=== PATIENT | female | born 1990 | race Hispanic/Latino ===

== ENCOUNTER 2018-09-10 11:03 | Outpatient (CLI) | payer MEDICAID ==
--- NOTE | 2018-09-10 12:02 | Ultrasound Report ---
LEFT BREAST ULTRASOUND: 09/10/18 11:03:00 CLINICAL: 28-year-old with a left breast lump felt by her doctor at 3 o'clock. She was breast-feeding at the time and has discontinued breast-feeding. The patient does not feel a lump. FINDINGS: Ultrasound the left breast was performed from 2 o'clock to 4 o'clock and demonstrated normal fibroglandular structures. No mass, cyst or shadowing. IMPRESSION: Negative targeted left breast ultrasound. BI-RADS 1 - - Negative RECOMMENDATION: Clinical followup and routine mammographic screening based on ACS guidelines.
== END 2018-09-10 11:04 | disposition home or self-care (01) ==
LOC: US 11:03
PROVIDERS: ATTEND Obstetrics & Gynecology
DX: N63.20 Unspecified lump in the left breast, unspecified quadrant (principal)

== ENCOUNTER 2021-07-14 20:48 | Outpatient (CLI) | payer MEDICAID ==
[2021-07-14] MEDS ORDERED: LACTATED RINGERS 1,000 ML ONE (21:15)
--- NOTE | 2021-07-14 22:17 | Ultrasound Report ---
Obstetrical ultrasound limited INDICATION: well-being FINDINGS: heart rate is 148 bpm. The fetus is in the cephalic position. Signer Name: Joe Howe MD Signed: 07/14/2021 10:12 PM Workstation Name: [id number]
[2021-07-14 23:01] LABS: Bacteria,Urine 1+ /HPF (Negative); Bilirubin,Urine NEG (Negative); Blood,Urine NEG (Negative); Color,Urine Yellow (Yellow); Mucus,Urine FEW /HPF; Protein,Urine <15 mg/dL mg/dL (Negative); Urobilinogen,Urine < 2.0 mg/dL (<2.0)
[2021-07-14 23:14] VITALS: BP 138/88
--- NOTE | 2021-07-15 01:53 | Event Note ---
Date: 07/14/21 Patient presented complaining of contractions and rectal pressure. She's a patient of Dr. Lex Coronado. States pain started while [place] a couple of hours prior to arrival, she denies having sex since conception, ROM, bleeding, constipation or urinary symptoms. States she has not felt any FM since yesterday. Initially stated she was 25 weeks by a recent US at [facility]. However she gave an CHARLES of 11/17/21. On reviewing [facility] she was noted to have a 9 1/7 week US on 04/26/21 that placed her CHARLES 11/28/21. She Has jaelyn evaluated by [facility] for "calcifications on the baby's heart and a cyst in the baby's brain" and she's HIV +, diagnosed 12/2020. Currently she's on Bitarvy and also followed by ID. FHT's were not able to be palpated therefore US ordered that revealed +FHT's and cephalic. SVE by Damien =0/0/-4. IVF fluids given and UA performed. UA negative.
== END 2021-07-14 23:30 | disposition home or self-care (01) ==
LOC: TRG 20:48 → APU 20:50 → TRG 23:30
PROVIDERS: ATTEND Obstetrics & Gynecology
DX: O47.02 False labor before 37 completed weeks of gestation, second trimester (principal); Z3A.20 20 weeks gestation of pregnancy
CPT/HCPCS: 76815; 81001

== ENCOUNTER 2021-07-24 17:38 | Outpatient (CLI) | payer MEDICAID ==
[2021-07-24] MEDS ORDERED: LACTATED RINGERS 500 ML IV ONE (18:19)
[2021-07-24 18:23] VITALS: BP 125/82
--- NOTE | 2021-07-24 19:05 | Event Note ---
Date: 07/24/21 Pt presents to triage with c/o losing her mucous plug and felt "gush" of vaginal fluid. Pt denies feeling any pain. Reports spotting seen when wiped this am but since resolved. Per RN, ROM plus already sent. Pt informed testing may come back with a false positive d/t vaginal spotting today. Orders given for ultrasound for total VALERIO. Speculum exam negative for pooling, cervix visualized closed and thick, and white clumpy discharge noted. Pt reports recent tx for yeast infection x1 day. Pt denies vaginal itching and odor. Pt reports +HIV status and denies sexual encounters since conception of this . FU this week with MyOB d/w pt and advised for vaginitis ssx. Plan to discharge home if VALERIO WNL. FHT's + and no contractions seen on toco. POC d/w pt. Pt verbalizes understanding and agrees to POC.
[2021-07-24 19:06] LABS: Bilirubin,Urine NEG (Negative); Blood,Urine NEG (Negative); Calcium Oxalate Crystals,Urine 1+; Color,Urine Yellow (Yellow); Mucus,Urine 2+ /HPF; Protein,Urine <15 mg/dL mg/dL (Negative)
--- NOTE | 2021-07-24 19:24 | Ultrasound Report ---
US OB limited INDICATION / CLINICAL INFORMATION: R/O PPROM. COMPARISON: 07/14/2021. FINDINGS: Single viable intrauterine is noted in cephalic presentation. Heart rate is 152. Subjective ly amniotic fluid is within normal limits. IMPRESSION: 1. Single viable intrauterine . Amniotic fluid is within normal limits subjectively. Signer Name: Alfa Lilly MD Signed: 07/24/2021 7:19 PM Workstation Name: [id number]
== END 2021-07-24 19:07 | disposition home or self-care (01) ==
LOC: TRG 17:38 → APU 17:40 → TRG 19:07
PROVIDERS: ATTEND Obstetrics & Gynecology
DX: O36.8120 Decreased fetal movements, second trimester, not applicable or unspecified (principal); Z3A.21 21 weeks gestation of pregnancy
CPT/HCPCS: 36415; 76815; 81001; 84112

== ENCOUNTER 2021-10-04 10:54 | Outpatient (CLI) | payer MEDICAID ==
[2021-10-04 14:20] LABS: Color,Urine Yellow (Yellow)
[2021-10-04 14:21] LABS: Bilirubin,Urine Negative (Negative)
[2021-10-04 14:22] LABS: PH,Urine 7.5 (5.0-7.0)
[2021-10-04 14:23] LABS: Blood,Urine Trace (Negative); Protein,Urine <30 mg dL mg/dL (Negative)
[2021-10-04] MEDS ORDERED: LACTATED RINGERS 500 ML IV ONE ×2 (14:30→16:00)
[2021-10-04] MEDS ORDERED: LACTATED RINGERS 1,000 ML IV ONE (14:30)
[2021-10-04 14:54] LABS: Amorphous Crystals,Urine 2+; Calcium Oxalate Crystals,Urine 2+; Mucus,Urine FEW /HPF; Renal Epithelial Cells,Urine 4 /LPF
[2021-10-04] MEDS: TERBUTALINE 1 MG/1 ML INJ SUB-Q SCH ×2 (15:17→16:53)
[2021-10-04 16:55] VITALS: BP 127/82
== END 2021-10-04 18:30 | disposition home or self-care (01) ==
LOC: TRG 10:54 → APU 10:55 → TRG 18:30
PROVIDERS: ATTEND Obstetrics & Gynecology
DX: O62.9 Abnormality of forces of labor, unspecified (principal); Z3A.32 32 weeks gestation of pregnancy
CPT/HCPCS: 59025; 81001; 87086; 96360; 96361; 96372; J3105; J7120

== ENCOUNTER 2021-10-18 12:25 | Outpatient (CLI) | payer MEDICAID ==
[2021-10-18] MEDS ORDERED: ACETAMINOPHEN 325 MG TAB PO NR (14:00)
[2021-10-18 14:16] LABS: Bilirubin,Urine NEG (Negative); Blood,Urine SM (Negative); Color,Urine Yellow (Yellow)
[2021-10-18 14:35] LABS: Mucus,Urine 2+ /HPF
[2021-10-18 15:07] VITALS: BP 93/54
== END 2021-10-18 15:22 | disposition home or self-care (01) ==
LOC: TRG 12:25 → APU 12:27 → TRG 15:22
PROVIDERS: ATTEND Obstetrics & Gynecology
DX: O42.90 Premature rupture of membranes, unspecified as to length of time between rupture and onset of labor, unspecified weeks of gestation (principal); O26.892 Other specified pregnancy related conditions, second trimester; M54.50 Low back pain, unspecified; Z3A.34 34 weeks gestation of pregnancy
CPT/HCPCS: 81001; 87086

== ENCOUNTER 2021-11-01 21:21 | Outpatient (CLI) | payer MEDICAID ==
[2021-11-01 21:49] VITALS: BP 123/82
[2021-11-01] MEDS ORDERED: LACTATED RINGERS 1,000 ML IV ONE (22:14)
== END 2021-11-01 23:00 | disposition home or self-care (01) ==
LOC: TRG 21:21 → APU 21:23 → TRG 23:00
PROVIDERS: ATTEND Obstetrics & Gynecology
DX: O62.9 Abnormality of forces of labor, unspecified (principal); Z3A.36 36 weeks gestation of pregnancy
CPT/HCPCS: 36415; 84112; Q0177

== ENCOUNTER 2021-11-23 23:15 | Outpatient (CLI) | payer MEDICAID ==
[2021-11-23 23:22] VITALS: BP 134/84
[2021-11-24 01:03] LABS: Hyaline Casts,Urine 1 /LPF; Mucus,Urine FEW /HPF
[2021-11-24 01:40] LABS: Bilirubin,Urine Negative (Negative); Blood,Urine Trace (Negative); Color,Urine Straw (Yellow)
--- NOTE | 2021-11-24 03:28 | Ultrasound Report ---
US OB BPP wo non-stress INDICATION / CLINICAL INFORMATION: well being, decreased movement COMPARISON: None available. TECHNIQUE: Using chest attending is present, biophysical profile was performed with scoring of biophysical variables including breathing movements, movements, posture and t one, and qualitative amniotic fluid volume. FINDINGS: BREATHING MOVEMENT = 2 GROSS BODY MOVEMENT = 2 TONE = 2 QUALITATIVE AMNIOTIC FLUID VOLUME = 2 TOTAL BIOPHYSICAL SCORE = 8/8 Clinical estimated gestational age is 39 weeks 3 days. heart rate is 131 bpm. Fetus lies in cephalic position. Largest pocket of fluid measures 4.2 cm. IMPRESSION: 1. biophysical profile score 8/8. Signer Name: Jayce Ruby II, MD Signed: 11/24/2021 3:23 AM Workstation Name: [id number]
== END 2021-11-24 03:44 | disposition home or self-care (01) ==
LOC: TRG 23:15 → APU 23:16 → TRG 11-24 03:44
PROVIDERS: ATTEND Obstetrics & Gynecology
DX: O26.893 Other specified pregnancy related conditions, third trimester (principal); R10.9 Unspecified abdominal pain; Z3A.39 39 weeks gestation of pregnancy
CPT/HCPCS: 76819; 81001; 87086